=== PATIENT | male | born 1965 | race Two or more races ===

== ENCOUNTER 2019-01-08 21:16 | Emergency (ER) | payer OTHER ==
[~2019-01-08] VITALS: Ht 165.1 cm; Wt 59.0 kg
[2019-01-09 00:24] LABS: BASOPHILS % 0.2 % (0.0-2.0); EOSINOPHILS % 0.2 % (0.0-5.0); HEMATOCRIT. 27.6 % (42.0-52.0); HEMOGLOBIN. 9.8 g/dL (14.0-18.0); LYMPHOCYTES % 38.1 % (20.0-50.0); MEAN CORPUSCULAR VOLUME 90.7 fL (80.0-94.0); MEAN PLATELET VOLUME 9.2 fl (7.4-10.4); MONOCYTES % 7.2 % (2.0-8.0); NEUTROPHILS % 54.3 % (40.0-76.0); PLATELET 65 x1000/uL (130-400); RED BLOOD CELL COUNT 3.05 mill/uL (4.7-6.1); RED CELL DISTRIBUTION WIDTH 14.3 % (11.6-14.6)
[2019-01-09 00:30] LABS: CHLORIDE 100 mEq/L (98-107)
[2019-01-09 00:37] LABS: INR 1.5; PROTHROMBIN TIME 14.8 sec (9.6-11.0)
[2019-01-09] MEDS ORDERED: DEXTROSE 50% WATER 50ML SYRINGE IV ONE (04:30)
[2019-01-09 04:53] VITALS: BP 114/81
== END 2019-01-09 04:57 | disposition short-term general hospital (02) ==
LOC: ER 21:16 → ENRESERV 01-09 01:08 → CANBEDREQ 01-09 01:48 → ER 01-09 04:57
DX: S37.39XA Other injury of urethra, initial encounter (principal); R31.9 Hematuria, unspecified; D64.9 Anemia, unspecified; D69.6 Thrombocytopenia, unspecified; E88.09 Other disorders of plasma-protein metabolism, not elsewhere classified; R74.8 Abnormal levels of other serum enzymes; I10 Essential (primary) hypertension; X58.XXXA Exposure to other specified factors, initial encounter; Y93.89 Activity, other specified; Y92.89 Other specified places as the place of occurrence of the external cause; Y99.8 Other external cause status
CPT/HCPCS: 36415; 82962; 96374; 99285

== ENCOUNTER 2019-02-04 13:54 | Inpatient (IN) | payer OTHER ==
[~2019-02-04] VITALS: Ht 167.6 cm; Wt 71.4 kg
[2019-02-04] MEDS ORDERED: SODIUM CHLORIDE 0.9% 1000ML BAG (SEPSIS BOLUS) IV ONE (14:30)
[2019-02-04 14:59] LABS: CHLORIDE 109 mEq/L (98-107)
[2019-02-04 15:00] LABS: BASOPHILS % 0.2 % (0.0-2.0); EOSINOPHILS % 0.1 % (0.0-5.0); HEMATOCRIT. 22.9 % (42.0-52.0); INR 1.6; LYMPHOCYTES % 20.2 % (20.0-50.0); MEAN CORPUSCULAR VOLUME 92.2 fL (80.0-94.0); MEAN PLATELET VOLUME 9.3 fl (7.4-10.4); MONOCYTES % 4.1 % (2.0-8.0); NEUTROPHILS % 75.4 % (40.0-76.0); PROTHROMBIN TIME 15.8 sec (9.6-11.0); RED BLOOD CELL COUNT 2.49 mill/uL (4.7-6.1); RED CELL DISTRIBUTION WIDTH 14.9 % (11.6-14.6)
[2019-02-04 15:05] LABS: PLATELET 35 x1000/uL (130-400)
[2019-02-04] MEDS ORDERED: DEXTROSE 50% WATER 50ML SYRINGE IV ONE ×2 (15:29→15:30)
[2019-02-04] MEDS ORDERED: ALBUTEROL (0.083%) 2.5MG/3ML NEB HHN STA (16:27)
[2019-02-04 17:03] LABS: BG CARBOXYHEMOGLOBIN 0.4 % (0.5-1.5); BG DEOXYHEMOGLOBIN 1.7 % (0.0-5.0); BG FRACTION INSPIRED OXYGEN 99.8; BG HCO3 ACT 20.6 mmol/L (22.0-26.0); BG METHEMOGLOBIN 0.1 % (0.0-1.5); BG OXYGEN SATURATION 98.3 % (92.0-98.5); BG OXYHEMOGLOBIN 97.8 % (94.0-97.0); BG PCO2 30.2 mmHg (35.0-45.0); BG PH 7.452 (7.350-7.450); BG PO2 205.5 mmHg (75.0-100.0); BG SAMPLE SITE LEFT BRACHIAL; BG TOTAL HEMOGLOBIN 6.8 g/dL (12.0-18.0); BG VENT MODE MASK - NRB
[2019-02-04] MEDS ORDERED: HYDROCODONE/ACETAMINOPHEN 5/325MG TABLET PO PRN (18:00)
[2019-02-04] MEDS ORDERED: ONDANSETRON HCL 4MG/2ML INJ IV PRN (18:00)
[2019-02-04] MEDS ORDERED: MAGNESIUM/ALUMINUM HYDROXIDE/SIMETHICONE 30ML UDC PO PRN (18:00)
[2019-02-04] MEDS ORDERED: ACETAMINOPHEN 325MG TABLET PO PRN (18:00)
[2019-02-04] MEDS ORDERED: ACETAMINOPHEN 650MG SUPP PR PRN (18:00)
[2019-02-04] MEDS ORDERED: IPRATROPIUM/ALBUTEROL 0.5-3(2.5)MG/3ML NEB INH PRN (18:00)
[2019-02-04] MEDS ORDERED: CLONIDINE 0.1MG TABLET PO PRN (18:00)
[2019-02-04] MEDS ORDERED: DIPHENHYDRAMINE 50MG/ML VIAL IV PRN (18:00)
[2019-02-04] MEDS ORDERED: DEXTROSE 5% WATER 1,000 ML IV SCH (18:00)
[2019-02-04] MEDS ORDERED: HYDRALAZINE 20MG/ML VIAL IV PRN (18:45)
[2019-02-04] MEDS ORDERED: PIPERACILLIN/TAZOBACTAM 2.25 G in DEXTROSE 5% WATER 50 ML IV NR (20:35)
[2019-02-04] MEDS: DEXTROSE 50% WATER 50ML SYRINGE IV PRN ×3 (21:14→21:28)
[2019-02-04] MEDS ORDERED: IOHEXOL-350 100 ML BOTTLE ONE (22:22)
[2019-02-04 22:46] VITALS: BP 165/97
[2019-02-05] VITALS: BP 144/89
[2019-02-05] MEDS: BLOOD SUGAR DIAGNOSTIC STRIP TEST SCH ×2 (00:08→01:46)
[2019-02-05] MEDS: DEXTROSE 50% WATER 50ML SYRINGE IV PRN (01:08)
[2019-02-05] MEDS ORDERED: DEXTROSE 50% WATER 50ML SYRINGE IV PRN (01:45)
[2019-02-05 02:00] VITALS: BP 110/69
[2019-02-05] MEDS ORDERED: PIPERACILLIN/TAZOBACTAM 2.25 G in DEXTROSE 5% WATER 50 ML IV SCH ×2 (02:30→06:00)
[2019-02-05] MEDS ORDERED: DEXT 10% WATER 1,000 ML IV SCH (02:30)
[2019-02-05] MEDS: IPRATROPIUM/ALBUTEROL 0.5-3(2.5)MG/3ML NEB INH SCH ×2 (02:34→08:30)
[2019-02-05 04:00] VITALS: BP 146/103
[2019-02-05] MEDS ORDERED: BLOOD SUGAR DIAGNOSTIC STRIP TEST SCH (04:00)
[2019-02-05 06:00] VITALS: BP 108/69
[2019-02-05 07:29] VITALS: BP 138/95
[2019-02-05 07:58] LABS: HEMATOCRIT. 21.4 % (42.0-52.0); HEMOGLOBIN. 7.4 g/dL (14.0-18.0); MEAN CORPUSCULAR VOLUME 92.7 fL (80.0-94.0); MEAN PLATELET VOLUME 8.6 fl (7.4-10.4); RED CELL DISTRIBUTION WIDTH 15.1 % (11.6-14.6)
[2019-02-05 08:14] LABS: PLATELET 16 x1000/uL (130-400)
[2019-02-05] MEDS ORDERED: ATROPINE SULFATE 1MG/ML VIAL ONE (08:37)
[2019-02-05] MEDS ORDERED: ATROPINE SULFATE 1MG/10ML SYR ONE (08:40)
[2019-02-05] MEDS ORDERED: EPINEPHRINE 0.1MG/ML (1:10,000) 10ML SYR ONE (08:40)
[2019-02-05] MEDS ORDERED: CALCIUM CHLORIDE 1GM/10ML SYR IV ONE (08:40)
[2019-02-05] MEDS ORDERED: SODIUM BICARBONATE 8.4% MEQ/ML 50ML VIAL IV ONE (08:40)
[2019-02-05] MEDS ORDERED: DEXTROSE 50% WATER 50ML SYRINGE IV ONE (08:40)
[2019-02-05 08:50] LABS: CHLORIDE 107 mEq/L (98-107)
[2019-02-05 08:58] LABS: HDL CHOLESTEROL 29 mg/dL (40-59)
[2019-02-05 09:02] LABS: LDL CHOLESTEROL 2 mg/dL (5-100)
[2019-02-05 17:57] LABS: PLATELET ESTIMATE MARKEDLY DECREASED
[2019-02-05] MEDS ORDERED: FAMOTIDINE 20MG/2ML VIAL IV SCH (23:00)
== END 2019-02-05 09:16 | disposition expired | DRG 137 ==
LOC: ER 13:54 → 3WST 17:30 → EDBEDREQSVC 17:39 → EDBEDREQ 17:39 → CANRESERV 19:49 → ENRESERV 19:49 → EDBEDREQSVC 20:00 → ENRESERV 20:05
PROVIDERS: ADMIT Internal Medicine; ATTEND Internal Medicine
PROC: 5A12012 Performance of Cardiac Output, Single, Manual (ICD-10-PCS; principal; 2019-02-05)
DX: J69.0 Pneumonitis due to inhalation of food and vomit (principal); I46.9 Cardiac arrest, cause unspecified; G93.41 Metabolic encephalopathy; J90 Pleural effusion, not elsewhere classified; C78.7 Secondary malignant neoplasm of liver and intrahepatic bile duct; D68.9 Coagulation defect, unspecified; D69.6 Thrombocytopenia, unspecified; R18.8 Other ascites; I31.3 Pericardial effusion (noninflammatory); D64.9 Anemia, unspecified; E80.6 Other disorders of bilirubin metabolism; R74.0 Nonspecific elevation of levels of transaminase and lactic acid dehydrogenase [LDH]; E16.2 Hypoglycemia, unspecified; Z51.5 Encounter for palliative care; Z85.07 Personal history of malignant neoplasm of pancreas
CPT/HCPCS: 36415; 36600; 71045; 71275; 76705; 80061; 82375; 82805; 82962; 83605; 84145; 84484; 86850; 86900; 92950; 93005; 94640; 96374; 99285; J0461; J2543; J3490; J7030; J7060; J7611; J7620; Q9967